=== PATIENT | female | born 1995 | race Caucasian/White ===

== ENCOUNTER 2020-05-24 02:20 | Emergency (ER) | payer SELFPAY ==
[~2020-05-24] VITALS: Ht 160 cm; Wt 106.1 kg
[2020-05-24] MEDS ORDERED: ACID CONTROLLER10 MG PO (02:46)
[2020-05-24] MEDS ORDERED: CARAFATE1 GM PO (06:30)
[2020-05-24] MEDS ORDERED: OMEPRAZOLE20 MG PO (06:30)
== END 2020-05-24 06:48 | disposition home or self-care (01) ==
LOC: ED 02:20
DX: K30 Functional dyspepsia (principal); K21.9 Gastro-esophageal reflux disease without esophagitis; Z88.5 Allergy status to narcotic agent; Z79.899 Other long term (current) drug therapy
CPT/HCPCS: 74177; 76705; 80053; 81001; 83690; 83735; 84703; 85025; 96361; 96375; 99284-25; C9113; J1170; J2405; J2550; J3010; J7030; Q9967